=== PATIENT | male | born 1945 | race Caucasian/White ===

== ENCOUNTER → 2021-02-19 14:38 | Outpatient (CLI) | payer OTHER, SELFPAY ==
--- NOTE | 2021-02-19 | DI.ECHO.S_ITS ---
[facility] +---------+ : : [address] : [place] : : : : [id number] : : : : Phone: [phone]+ Echocardiogram Report + + :Name: STEPHON TAYLOR Study Date: 02/19/2021 Height: 69 in : [facility] ReadingLocation: Weight: 219 lb : : Gender: Male BSA: 2.1 m2 : :: 1945 Age: 75 yrs BP: 121/63 mmHg: :Reason For Study: ISCHEMIC CARDIOMYOPATHY : :Ordering Physician: SHARIFA, : :MAXWELL Performed By: Reshma Huitron : :Referring: MAXWELL SEALS : + + Interpretation Summary 1) Moderately enlarged left ventricle with moderately reduced systolic function (EF 35-40%). 2) The distal septum, distal anterior wall, and the apical 1/4th of the myocardium are akinetic. 3) The right ventricle grossly appears normal in size with probable normal systolic function. There is a pacemaker lead in the right ventricle. 4) No significant valvular abnormalities. 5) Compared to the Echo done 09/23/2013, no significant change when compared visually. Procedure: A two-dimensional transthoracic echocardiogram with color flow and Doppler was performed. The study quality was technically adequate. Comparison is made with the echocardiogram of 09/23/2013. The patient had occasional PVCs during the exam. The heart rate ranged between 66-79 bpm during the study. Left Ventricle: The left ventricle is moderately dilated. The ejection fraction is estimated to be 35-40%. The distal septum, distal anterior wall, and the apical 1/4th of the myocardium are akinetic. Right Ventricle: There is a pacemaker lead in the right ventricle. The right ventricle grossly appears normal in size with probable normal systolic function. Atria: The left atrium is mildly dilated. Right atrium not well visualized. There is no Doppler evidence for an interatrial shunt. Mitral Valve: There is mild mitral annular calcification. The mitral valve leaflets appear mildly thickened, but open well. There is mild mitral regurgitation. Aortic Valve: The aortic valve is trileaflet. The aortic valve opens well. The aortic valve is slightly calcified. There is no aortic valve stenosis. There is mild aortic regurgitation. Tricuspid Valve: The tricuspid valve is normal in structure and function. There is mild tricuspid regurgitation. The right ventricular systolic pressure is estimated to be at least 36 mmHg based on an estimated right atrial pressure of 8 mm Hg. Pulmonic Valve: The pulmonic valve is not well seen, but is grossly normal. There is mild pulmonic regurgitation. Great Vessels: The aortic root is normal size. The ascending aorta is mildly enlarged. The IVC is of normal diameter and collapses less than 50% with a sniff. This suggests a right atrial pressure of 8 mm Hg. Pericardium/ Pleura There is no pericardial effusion. There is no pleural effusion. MMode/2D Measurements & Calculations LVIDd: 6.6 cm LVOT diam: 2.0 cm LVIDs: 5.0 cm Ao root diam: 3.3 cm FS: 24.3 % asc Aorta Diam: 3.5 cm IVSd: 0.95 cm Ao Arch Diam (Prox Trans): 4.0 cm LVPWd: 0.98 cm LV gracia. diameter/BSA (cm/m^2): 3.1 LV sys. diameter/BSA (cm/m^2): 2.3 LA A2 area: 23.2 cm2 IVC diam: 1.4 cm LA A4 area: 25.4 cm2 LA length (vol): 6.0 cm LA vol: 83.3 ml LA vol index: 38.8 ml/m2 RVD1 (basal): 3.9 cm TAPSE: 2.0 cm Doppler Measurements & Calculations Ao V2 max: 121.9 cm/sec LVOT Max Gonzales: 75.4 cm/sec Ao V2 mean: 91.6 cm/sec LV V1 max P.3 mmHg Ao max P.9 mmHg LV V1 VTI: 16.7 cm Ao mean P.6 mmHg PARVIZ(I,D): 1.9 cm2 Ao V2 VTI: 28.2 cm PARVIZ(V,D): 2.0 cm2 sev ratio: 0.59 PARVIZ indexed to BSA (cm^2/m^2): 0.91 MV E max gonzales: 63.9 cm/sec TR max gonzales: 265.8 cm/sec MV A max gonzales: 78.3 cm/sec TR max P.3 mmHg MV E/A: 0.82 PA V2 max: 113.7 cm/sec Med Peak E' Gonzales: 4.4 cm/sec PA V2 mean: 78.7 cm/sec E/E' med: 14.6 PA mean P.8 mmHg Lat Peak E' Gonzales: 6.6 cm/sec PA pr(Accel): 22.5 mmHg E/E' lat: 9.6 E/e' average: 12.1 MV dec time: 0.20 sec SV(LVOT): 55.0 ml Reading Physician:10:31 AM
== END ==
PROVIDERS: PCP Internal Medicine Cardiovascular Disease; Referring Provider Internal Medicine Cardiovascular Disease; Visit Provider Internal Medicine Cardiovascular Disease
DX: I08.3 Combined rheumatic disorders of mitral, aortic and tricuspid valves (principal); I77.89 Other specified disorders of arteries and arterioles; I25.5 Ischemic cardiomyopathy
CPT/HCPCS: 93306; Q9957

== ENCOUNTER 2025-06-23 20:05 | Observation (INO) | payer OTHER, SELFPAY ==
[2025-06-23] VITALS (10 sets, daily range): BP systolic 106–126; BP diastolic 60–84; PULSE 50–78; RESP 16–23; TEMP 36.5; O2SAT 94–96; BMI 29.5
--- NOTE | 2025-06-23 20:23 | DI.RAD.S_ITS ---
P angulated ROCEDURE: XR CHEST 1V
[2025-06-23 21:21] LABS: Add Manual Diff / Slide Review NO; Hematocrit 29.9 % (41-53); Hemoglobin 10.2 g/dL (13.5-17.5); Lymphocytes Absolute Auto 900 /uL (1100-4500); Mean Corpuscular HGB Conc 34.1 % (30-36); Mean Corpuscular Hemoglobin 34.1 PG (26-34); Mean Corpuscular Volume 99.9 fL (80-100); Platelet Count 252 X10^3/uL (150-400)
[2025-06-23 21:28] LABS: INR 3.4 (0.9-1.3); Prothrombin Time 37.7 SECONDS (9.4-12.5)
[2025-06-23 21:31] LABS: PTT Partial Thromboplastin Tim 67 SECONDS (25.1-36.5)
[2025-06-23 21:33] LABS: Alanine Aminotransferase 20 IU/L (<50); Albumin 3.9 g/dL (3.5-5.0); Albumin Globulin Ratio 1.4 (1.0-2.8); Alkaline Phosphatase 105 U/L (38-126); Blood Urea Nitrogen 20 mg/dL (9-20); Calcium 9.3 mg/dL (8.4-10.2); Carbon Dioxide 24 mmol/L (22-32); Chloride 105 mmol/L (98-107); Creatine Kinase < 20 U/L (55-170); Estimated Glomerular Filt Rate > 60 mL/min (>60); Globulin 2.8 g/dL (1.7-4.1); Glucose 123 mg/dL (70-99); HEMOLYSIS < 15 (0-50); Lipase 58 U/L (23-300); Magnesium 1.4 mg/dL (1.6-2.3); Potassium 3.9 mmol/L (3.4-5.1); Sodium 134 mmol/L (137-145); Total Protein 6.7 g/dL (6.3-8.2)
[2025-06-23 21:45] LABS: NT-proBNP (BNP-Adult 18+) 3900 pg/mL (<450); Troponin I 0.024 ng/mL (0.01-0.034)
--- NOTE | 2025-06-23 22:39 | ED.DIZZY ---
HPI - Dizziness General Chief Complaint: Dizziness Stated Complaint: headache/dizzy/weakness Time Seen by Provider: 06/23/25 20:22 Source: patient Mode of arrival: Wheelchair History of Present Illness HPI Narrative: 79-year-old male with congestive heart failure extensive cardiac history including coronary artery bypass graft and a pacemaker presents with sudden dizziness this morning when he woke up. It got to the point were he had difficulty standing and walking. No other complaints. Related Data Home Medications ?Medication ?Instructions ?Recorded ?Confirmed CALCIUM CARBONATE/VITAMIN D3 1 tab PO BID ##0 11/04/08 (Oyster Shell Calcium-Vit D Tab) MULTIVITAMIN (#MULTIPLE VITAMINS) 1 cap PO Q DAY ##0 10/27/11 Metformin Hydrochloride 500 mg PO BID ##0 10/27/11 (#GLUCOPHAGE) NITROGLYCERIN (#NITROSTAT) 0.4 mg sublingual PRN ##0 10/27/11 Oxycodone/Acetaminophen (Percocet 1 tab PO QIDP ##0 10/27/11 5-325 MG Tablet) PREDNISONE- (#DELTASONE) 20 mg PO Q DAY ##0 10/27/11 WARFARIN SODIUM 4 mg PO QDAY ##0 10/27/11 carvedilol 25 mg tablet (Coreg) 25 mg PO BID ##0 10/27/11 hydrochlorothiazide 12.5 mg capsule 12.5 mg PO Q DAY ##0 10/27/11 lisinopril 10 mg tablet 10 mg PO Q DAY ##0 10/27/11 lorazepam 1 mg tablet (Ativan) 0.5 - 1 mg PO BIDP ##0 10/27/11 rosuvastatin 40 mg tablet (Crestor) 40 mg PO Q DAY ##0 10/27/11 spironolactone 25 mg tablet 25 mg PO QDAY ##0 10/27/11 sulfasalazine 500 mg tablet 500 mg PO BID ##0 10/27/11 Previous Rx's ?Medication ?Instructions ?Recorded meclizine 25 mg tablet 25 mg PO DAILY PRN dizziness #14 06/24/25 tabs Allergies Allergy/AdvReac Type Severity Reaction Status Date / Time AMIODARONE Allergy Severe LUNG Uncoded 12/03/17 12:03 INVOLVEMENT Review of Systems Review of Systems ROS Unobtainable: All systems reviewed & are unremarkable except as noted in HPI and below Patient History Social History Smoking Status: Never smoker Smoking Status: Never smoker Exam Narrative Exam Narrative: General: Patient appears to be in no acute distress, acting appropriately Head: normocephalic, atraumatic, HEENT: Pupils equal round reactive, eyes tracking well, neck supple, no JVD Heart: regular rate and rhythm, no murmurs, rubs, or gallops heard Lungs: clear to auscultation, no adventitious sounds Abdomen: soft , nontender, nondistended, positive bowel sounds Neurological: no focal neurological signs, moving all extremities well, alert and oriented x3, Psych: good judgment ,good insight, mood is normal. Initial Vital Signs Initial Vital Signs: Vital Signs Temperature 97.7 F 06/23/25 20:11 Pulse Rate 50 L 06/23/25 20:11 Respiratory Rate 16 06/23/25 20:11 Blood Pressure 113/66 06/23/25 20:11 Pulse Oximetry 96 06/23/25 20:11 Oxygen Delivery Method Room Air 06/23/25 20:11 Course Orders Ordered: ED Orders 06/23/25 20:22 EKG-12 Lead Stat 06/23/25 20:23 XR chest 1V Stat 06/23/25 21:15 Complete Blood Count AUTO DIFF Stat Comprehensive Metabolic Panel Stat Lipase Stat Magnesium Stat NT-proBNP (BNP-Adult 18+) Stat PTT Partial Thromboplastin Lucien Stat Prothrombin Time INR Stat Troponin & CK Cardiac Panel Stat 06/23/25 23:34 Trop I [Troponin I] Stat 06/24/25 02:52 CT head/brain wo con Stat Discontinued Medications Magnesium Sulfate (Magnesium Sulfate) 2 gm in 50 mls @ 150 mls/hr IV NOW ONE Stop: 06/23/25 22:59 Last Infusion: 06/23/25 23:14 Dose: Infused Documented By: FERCHO Co-signed By: JONNIE Admin: 06/23/25 22:50 Dose: 150 mls/hr Documented By: HAL Co-signed By: JONNIE Sodium Chloride (Normal Saline 0.9%) 500 mls @ 1,000 mls/hr IV BOLUS ONE Stop: 06/24/25 02:22 Last Infusion: 06/24/25 02:38 Dose: Infused Documented By: Admin: 06/24/25 02:00 Dose: 1,000 mls/hr Documented By: FERCHO Meclizine HCl (Meclizine Hcl 12.5 Mg Tablet) 25 mg PO NOW ONE Stop: 06/24/25 00:27 Last Admin: 06/24/25 00:43 Dose: 25 mg Documented By: FERCHO Reevaluation(s) Reevaluation #1: Upon re-evaluation, even after fluid challenge patient's blood pressure still dropped with change in position from supine to standing. Patient's dizziness continued to persist. It was decided to attempt to admit the patient for observation. Consultations Consultation #1: consulted Dr. Goncalves who was animal taxonomist for Dr. Seals his inside plant supervisor at [facility] who recommended giving a 500cc ns bolus Consultation #2: Dr. Lopez consulted and graciously admitted the patient under observation. Time: 04:37 Vital Signs Vital signs: Vital Signs - 8 hr 06/23/25 20:38 06/23/25 21:00 06/23/25 21:00 Pulse Rate 70 75 Respiratory Rate 17 18 Blood Pressure 126/84 Pulse Oximetry 96 95 Oxygen Delivery Method 06/23/25 21:30 06/23/25 21:31 06/23/25 21:31 Pulse Rate 75 73 Respiratory Rate 20 16 Blood Pressure 116/64 Pulse Oximetry 95 95 Oxygen Delivery Method 06/23/25 22:00 06/23/25 22:01 06/23/25 22:01 Pulse Rate 76 78 Respiratory Rate 23 20 Blood Pressure 113/69 Pulse Oximetry 95 95 Oxygen Delivery Method 06/23/25 22:30 06/23/25 22:30 06/23/25 23:00 Pulse Rate 67 63 Respiratory Rate 17 18 Blood Pressure 125/72 Pulse Oximetry 96 94 Oxygen Delivery Method Room Air 06/23/25 23:00 06/23/25 23:30 06/23/25 23:30 Pulse Rate 63 Respiratory Rate 18 Blood Pressure 107/60 106/63 Pulse Oximetry 96 Oxygen Delivery Method Room Air 06/24/25 00:00 06/24/25 00:00 06/24/25 00:30 Pulse Rate 62 75 Respiratory Rate 15 17 Blood Pressure 112/68 Pulse Oximetry 96 95 Oxygen Delivery Method Room Air Room Air 06/24/25 00:30 06/24/25 01:00 06/24/25 01:01 Pulse Rate 137 H 105 H Respiratory Rate 30 H 17 Blood Pressure 120/64 Pulse Oximetry 96 96 Oxygen Delivery Method Room Air Room Air 06/24/25 01:01 06/24/25 01:30 06/24/25 01:31 Pulse Rate 87 94 H Respiratory Rate 16 13 Blood Pressure 100/52 L Pulse Oximetry 96 96 Oxygen Delivery Method Room Air Room Air 06/24/25 01:35 06/24/25 01:35 06/24/25 02:00 Pulse Rate 93 H 80 Respiratory Rate 14 16 Blood Pressure 94/52 L Pulse Oximetry 95 96 Oxygen Delivery Method Room Air Room Air 06/24/25 02:01 06/24/25 02:01 06/24/25 02:02 Pulse Rate 80 85 Respiratory Rate 14 21 Blood Pressure 83/52 L Pulse Oximetry 95 95 Oxygen Delivery Method Room Air 06/24/25 02:12 06/24/25 02:12 06/24/25 02:15 Pulse Rate 74 84 Respiratory Rate 19 21 Blood Pressure 76/51 L Pulse Oximetry 95 96 Oxygen Delivery Method Room Air 06/24/25 02:15 06/24/25 02:30 06/24/25 02:30 Pulse Rate 77 Respiratory Rate 13 Blood Pressure 91/54 L 110/57 L Pulse Oximetry 97 Oxygen Delivery Method 06/24/25 03:08 06/24/25 03:09 06/24/25 03:09 Pulse Rate 67 76 Respiratory Rate 17 18 Blood Pressure 109/68 Pulse Oximetry 87 L 94 Oxygen Delivery Method 06/24/25 03:30 06/24/25 03:30 06/24/25 04:00 Pulse Rate 76 85 Respiratory Rate 17 26 H Blood Pressure 102/64 Pulse Oximetry 96 92 Oxygen Delivery Method 06/24/25 04:00 Pulse Rate Respiratory Rate Blood Pressure 116/61 Pulse Oximetry Oxygen Delivery Method MDM - Dizziness Lab Data 06/23/25 21:15 06/23/25 21:15 Labs: Lab Results 06/23/25 06/23/25 Range/Units 21:15 23:34 WBC 6.7 (4.5-11.0) X10^3/uL RBC 2.99 L (4.5-5.9) X10^6/uL Hgb 10.2 L (13.5-17.5) g/dL Hct 29.9 L (41-53) % MCV 99.9 (80-100) fL MCH 34.1 H (26-34) PG MCHC 34.1 (30-36) % RDW 14.9 H (11.6-14.8) % Plt Count 252 (150-400) X10^3/uL Neut % (Auto) 79.4 H (50-75) % Lymph % (Auto) 12.9 L (25-40) % Calvert % (Auto) 7.1 (3-14) % Eos % (Auto) 0.0 L (2-4) % Baso % (Auto) 0.6 (0-2) % Neut # (Auto) 5400 (6579-0717) /uL Lymph # (Auto) 900 L (0471-8662) /uL Calvert # (Auto) 500 (0-900) /uL Eos # (Auto) 0 (0-450) /uL Baso # (Auto) 0 (0-100) /uL PT 37.7 H (9.4-12.5) SECONDS INR 3.4 H (0.9-1.3) APTT 67 H (25.1-36.5) SECONDS Sodium 134 L (137-145) mmol/L Potassium 3.9 (3.4-5.1) mmol/L Chloride 105 (98-107) mmol/L Carbon Dioxide 24 (22-32) mmol/L BUN 20 (9-20) mg/dL Creatinine 1.08 (0.66-1.25) mg/dL Estimated GFR > 60 (>60) mL/min BUN/Creatinine Ratio 18.5 (6-22) Glucose 123 H (70-99) mg/dL Calcium 9.3 (8.4-10.2) mg/dL Magnesium 1.4 L (1.6-2.3) mg/dL Total Bilirubin 0.9 (0.2-1.3) mg/dL AST 25 (17-59) IU/L ALT 20 (<50) IU/L Alkaline Phosphatase 105 (38-126) U/L Total Creatine Kinase < 20 L (55-170) U/L Troponin I 0.024 0.022 (0.01-0.034) ng/mL NT-Pro-B Natriuret Pep 3900 H (<450) pg/mL Total Protein 6.7 (6.3-8.2) g/dL Albumin 3.9 (3.5-5.0) g/dL Globulin 2.8 (1.7-4.1) g/dL Albumin/Globulin Ratio 1.4 (1.0-2.8) Lipase 58 (23-300) U/L Imaging Data CT scan - head: Radiologist's Impression: No acute intracranial abnormality Chest x-ray: Radiologist's Impression: No acute cardiopulmonary abnormality seen ECG Data Interpretation: EKG shows a ventricular paced rhythm at 69 beats per minute MDM Narrative Medical decision making narrative: 79-year-old male with a history of congestive heart failure, coronary artery bypass graft, pacemaker presents with sudden dizziness this a.m.. Most likely deal of orthostatic hypotension as patient blood pressure does decrease with change from supine to standing position. Patient was attempted with the fluid bolus challenge of 500 cc normal saline which helped some but did not completely reverse his symptoms. He continues to stay dizzy and thus it was decided to admit the patient under observation. Discharge Plan Departure Patient Disposition: Admitted as Observation Clinical Impression: Orthostatic hypotension Admit Date/Time: 06/24/25 04:37
[2025-06-23] MEDS: MAGNESIUM SULFATE 2 GM/50 ML PIGGYBACK IV (22:50)
--- NOTE | 2025-06-23 23:18 | PC.NURSE ---
Pt lying in ED stretcher speaking with daughter and son when RN enters exam room. Pt and family engage appropriately at this time. Continued plan of care discussed. No requests or concerns at this time. Pt remains connected to cardiac, reps, blood pressure, and poulse ox monitors with alarms on and audible. VS stable at this time. Call light within reach.
[2025-06-24] VITALS (24 sets, daily range): BP systolic 76–124; BP diastolic 51–68; PULSE 62–137; RESP 13–30; TEMP 35.8–36.4; O2SAT 87–98; BMI 29.5
[2025-06-24 00:12] LABS: Troponin I 0.022 ng/mL (0.01-0.034)
[2025-06-24] MEDS: MECLIZINE HCL 12.5 MG TABLET 25 MG PO (00:43)
--- NOTE | 2025-06-24 00:55 | PC.NURSE ---
Pt noted to have voided and soiled clothing and ED stretcher. Pt wiped down and assisted in changing into disposable hospital scrubs. Placed back in ED stretcher and wrapped in warm blankets. Reconnected to cardiac, resp, blood pressure, and pulse ox monitors with alarms on and audible. Manfred light within reach. Family remains at bedside. Pt request to sit in chair because it is les discomfort on neuropathy of lower extremities. Pt placed in chair per request close to vs machine with family sitting close by. Ok'd for food and fluids at th is time by Dr. Thorne. Soup provided as requested.
--- NOTE | 2025-06-24 01:47 | PC.NURSE ---
Pt states he feels no different or better after Meclizine dose. Dr. Thorne aware. Pt remains in chair for comfort. Daughter remains sitting in front of patient for safety.
[2025-06-24] MEDS: SODIUM CHLORIDE 0.9% 500 ML 1000 ML IV (02:00)
--- NOTE | 2025-06-24 02:07 | PC.NURSE ---
Dr. Thorne aware of current vs. NS bolus ordered and administered. Pt remains in chair for comfort at this time. Daughter continues to sit in front of patient for safety.
--- NOTE | 2025-06-24 02:38 | PC.NURSE ---
Pt states dizziness is unchanged after bolus and getting back into stretcher where blood pressure is better.
--- NOTE | 2025-06-24 02:52 | DI.CT.S_ITS ---
PROCEDURE: CT HEAD/BRAIN WO CON
--- NOTE | 2025-06-24 03:02 | PC.NURSE ---
Pt to imaging via ED stretcher with information technology project manager
--- NOTE | 2025-06-24 03:59 | PC.NURSE ---
Pt moved to chair at this time to monitor blood pressure prior to discharge.
--- NOTE | 2025-06-24 04:24 | PC.NURSE ---
Pt states he is still dizzy but feels better than he did and is comfortable going home at this time.
--- NOTE | 2025-06-24 04:27 | PC.NURSE ---
Pt states he does feel better but not enough to go home at this time. Dr. Thorne made aware and at bedside at th is time.
--- NOTE | 2025-06-24 06:12 | PC.WOUNDPHOT ---
BLE BLE L-knee LUE Back
--- NOTE | 2025-06-24 06:32 | P.HP_ITS ---
History of Present Illness
--- NOTE | 2025-06-24 06:32 | PM.HP.1 ---
History of Present Illness History of Present Illness Chief complaint: headache/dizzy/weakness Narrative: 79 years old male with history of congestive heart failure, coronary artery disease, CABG and pacemaker presented to the ER with sudden onset of dizziness when he woke up. He found very difficult standing and walking. Denies any other symptoms. In the ER he was found to be hypotensive and was started to be admitted for observation. His laboratory shows WBC 6.7, H&H 10.2/29.9, sodium 134, creatinine 1.08, blood sugar 125, troponin 0.0 24, BNP 3900, lipase 58. EKG shows ventricular paced rhythm of 69 bpm. Imaging study including head CT and chest x-ray was unremarkable. [facility] Social History Smoking Status: Never smoker Meds Home Medications and Allergies Home Medications ?Medication ?Instructions ?Recorded ?Confirmed ?Type CALCIUM CARBONATE/VITAMIN D3 1 tab PO BID ##0 11/04/08 History (Oyster Shell Calcium-Vit D Tab) MULTIVITAMIN (#MULTIPLE VITAMINS) 1 cap PO Q DAY ##0 10/27/11 History Metformin Hydrochloride 500 mg PO BID ##0 10/27/11 History (#GLUCOPHAGE) NITROGLYCERIN (#NITROSTAT) 0.4 mg sublingual PRN ##0 10/27/11 History Oxycodone/Acetaminophen (Percocet 1 tab PO QIDP ##0 10/27/11 History 5-325 MG Tablet) PREDNISONE- (#DELTASONE) 20 mg PO Q DAY ##0 10/27/11 History WARFARIN SODIUM 4 mg PO QDAY ##0 10/27/11 History carvedilol 25 mg tablet (Coreg) 25 mg PO BID ##0 10/27/11 History hydrochlorothiazide 12.5 mg capsule 12.5 mg PO Q DAY ##0 10/27/11 History lisinopril 10 mg tablet 10 mg PO Q DAY ##0 10/27/11 History lorazepam 1 mg tablet (Ativan) 0.5 - 1 mg PO BIDP ##0 10/27/11 History rosuvastatin 40 mg tablet (Crestor) 40 mg PO Q DAY ##0 10/27/11 History spironolactone 25 mg tablet 25 mg PO QDAY ##0 10/27/11 History sulfasalazine 500 mg tablet 500 mg PO BID ##0 03/04/12 History meclizine 25 mg tablet 25 mg PO DAILY PRN dizziness #14 06/24/25 Rx tabs Allergies Allergy/AdvReac Type Severity Reaction Status Date / Time AMIODARONE Allergy Severe LUNG Uncoded 12/03/17 12:03 INVOLVEMENT Review of Systems Review of Systems ROS: Yes All systems reviewed with the patient and are negative except as otherwise documented Constitutional Constitutional: Reports as per HPI and Reports system reviewed and no additional complaints, except as documented Eyes Eyes: Reports as per HPI and Reports system reviewed and no additional complaints, except as documented ENT Ears, Nose, Mouth, and Throat: Yes as per HPI and Yes system reviewed and no additional complaints, except as documented Cardiovascular Cardiovascular: Reports system reviewed and no additional complaints, except as documented Respiratory Respiratory: Reports system reviewed and no additional complaints, except as documented Gastrointestinal Gastrointestinal: Reports system reviewed and no additional complaints, except as documented Genitourinary Genitourinary: Reports system reviewed and no additional complaints, except as documented Musculoskeletal Musculoskeletal: Reports system reviewed and no additional complaints, except as documented, Reports abnormal gait and Reports numbness Neurologic Neurologic: Reports system reviewed and no additional complaints, except as documented, Reports abnormal gait, Reports confusion and Reports numbness Psychiatric Psychiatric: Reports system reviewed and no additional complaints, except as documented and Reports confusion Exam Vital Signs (past 8 hours): - 06/23/25 23:00 06/23/25 23:00 06/23/25 23:30 Pulse Rate 63 63 Respiratory Rate 18 18 Blood Pressure 107/60 Pulse Oximetry 94 96 Oxygen Delivery Method Room Air Room Air 06/23/25 23:30 06/24/25 00:00 06/24/25 00:00 Pulse Rate 62 Respiratory Rate 15 Blood Pressure 106/63 112/68 Pulse Oximetry 96 Oxygen Delivery Method Room Air 06/24/25 00:30 06/24/25 00:30 06/24/25 01:00 Pulse Rate 75 137 H Respiratory Rate 17 30 H Blood Pressure 120/64 Pulse Oximetry 95 96 Oxygen Delivery Method Room Air Room Air 06/24/25 01:01 06/24/25 01:01 06/24/25 01:30 Pulse Rate 105 H 87 Respiratory Rate 17 16 Blood Pressure 100/52 L Pulse Oximetry 96 96 Oxygen Delivery Method Room Air Room Air 06/24/25 01:31 06/24/25 01:35 06/24/25 01:35 Pulse Rate 94 H 93 H Respiratory Rate 13 14 Blood Pressure 94/52 L Pulse Oximetry 96 95 Oxygen Delivery Method Room Air Room Air 06/24/25 02:00 06/24/25 02:01 06/24/25 02:01 Pulse Rate 80 80 Respiratory Rate 16 14 Blood Pressure 83/52 L Pulse Oximetry 96 95 Oxygen Delivery Method Room Air Room Air 06/24/25 02:02 06/24/25 02:12 06/24/25 02:12 Pulse Rate 85 74 Respiratory Rate 21 19 Blood Pressure 76/51 L Pulse Oximetry 95 95 Oxygen Delivery Method Room Air 06/24/25 02:15 06/24/25 02:15 06/24/25 02:30 Pulse Rate 84 77 Respiratory Rate 21 13 Blood Pressure 91/54 L Pulse Oximetry 96 97 Oxygen Delivery Method 06/24/25 02:30 06/24/25 03:08 06/24/25 03:09 Pulse Rate 67 76 Respiratory Rate 17 18 Blood Pressure 110/57 L Pulse Oximetry 87 L 94 Oxygen Delivery Method 06/24/25 03:09 06/24/25 03:30 06/24/25 03:30 Pulse Rate 76 Respiratory Rate 17 Blood Pressure 109/68 102/64 Pulse Oximetry 96 Oxygen Delivery Method 06/24/25 04:00 06/24/25 04:00 06/24/25 04:24 Pulse Rate 85 Respiratory Rate 26 H Blood Pressure 116/61 102/56 L Pulse Oximetry 92 Oxygen Delivery Method 06/24/25 04:24 06/24/25 04:30 06/24/25 04:30 Pulse Rate 82 82 Respiratory Rate 20 17 Blood Pressure 100/57 L Pulse Oximetry 97 98 Oxygen Delivery Method 06/24/25 05:00 06/24/25 05:01 06/24/25 05:01 Pulse Rate 82 83 Respiratory Rate 17 21 Blood Pressure 103/53 L Pulse Oximetry 98 98 Oxygen Delivery Method Room Air Oxygen Delivery Method Room Air Const General: cooperative, comfortable and well developed Orientation: alert and oriented x3 HENMT Head: normal to inspection, normocephalic and atraumatic Face and sinus: normal facial exam Mouth: oral mucosae normal and moist mucous membranes Throat: posterior oropharynx normal Eyes General: appearance normal, both eyes and all related structures Pupils: PERRL EOM: EOM intact bilaterally Neck Neck: normal visual inspection and full ROM Chest Chest: normal inspection of the chest Resp Effort & Inspection: normal respiratory effort and able to speak in complete sentences Auscultation: clear to auscultation bilaterally Cardio Palpation: normal PMI Rate: regular rate Rhythm: regular rhythm Heart Sounds: S1 normal and S2 normal GI Inspection: normal to inspection Palpation: soft and no hepatosplenomegaly Auscultation: normal bowel sounds Skin General: no rashes or lesions noted Lesions: no lesions Rashes: no rashes Trauma: no lacerations or abrasions Neuro General: patient alert, patient awake, patient oriented x3 and no focal motor deficits Cranial Nerves: CN's II-XI intact bilaterally Cognition: normal cognition Speech: speech normal Gait: normal gait Motor: muscle tone normal throughout Sensory Exam: no sensory deficits noted Extrem General: full ROM and no calf tenderness Psych Appearance: grossly normal Mental Status: mental status grossly normal Speech and Movement: speech and movement normal Objective Labs 06/23/25 21:15 06/23/25 21:15 Labs: Laboratory Results - last 24 hr 06/23/25 06/23/25 21:15 23:34 WBC 6.7 RBC 2.99 L Hgb 10.2 L Hct 29.9 L MCV 99.9 MCH 34.1 H MCHC 34.1 RDW 14.9 H Plt Count 252 Neut % (Auto) 79.4 H Lymph % (Auto) 12.9 L Stephenson % (Auto) 7.1 Eos % (Auto) 0.0 L Baso % (Auto) 0.6 Neut # (Auto) 5400 Lymph # (Auto) 900 L Stephenson # (Auto) 500 Eos # (Auto) 0 Baso # (Auto) 0 PT 37.7 H INR 3.4 H APTT 67 H Sodium 134 L Potassium 3.9 Chloride 105 Carbon Dioxide 24 BUN 20 Creatinine 1.08 Estimated GFR > 60 BUN/Creatinine Ratio 18.5 Glucose 123 H Calcium 9.3 Magnesium 1.4 L Total Bilirubin 0.9 AST 25 ALT 20 Alkaline Phosphatase 105 Total Creatine Kinase < 20 L Troponin I 0.024 0.022 NT-Pro-B Natriuret Pep 3900 H Total Protein 6.7 Albumin 3.9 Globulin 2.8 Albumin/Globulin Ratio 1.4 Lipase 58 Assessment & Plan Assessment & Plan narrative: Orthostatic hypotension, most likely medication related. - Will hold diuretics, carvedilol and lisinopril for now - Judiciously give some fluids. Diabetes mellitus, type II without long-term current use of insulin, uncontrolled with hyperglycemia, -check HbA1c. -Continue to monitor blood sugar. - Hold metformin during the hospital stay -Continue diabetic diet with sliding scale insulins with NovoLog sliding scale. -hypoglycemia protocol as needed Chronic diastolic congestive heart failure and Ischemic heart disease. -Continue to monitor closely.?? - Hold home meds for now due to orthostatic hypotension.. -Strict I&O. -Daily weights -Nitroglycerin as needed Dizziness. Restart meclizine as needed Hyperlipidemia. Restart Crestor. Paroxysmal atrial fibrillation, rate controlled on warfarin. INR 3.4. - Pharmacy consult for warfarin dose adjustment - INR daily Hypomagnesia. Replace and monitor. Time-Based Coding :: [TOTAL MINUTES] spent with patient and on the chart (including review of chart, obtaining history, exam, reviewing outside data, placing orders, documenting exam and treatment plan, and counseling patient) on [DATE]. Quality VTE Deep Vein Thrombosis/Pulmonary Embolism Present on Admission: No MIPS - Admit I confirm the patient?s Advance Care Plan is present, Code status is documented, Surrogate decision maker is in patient?s record [If Yes, STOP here]: Yes MIPS - Meds 'Current medications' to include all prescriptions, [id number] products, herbals, cannabis/cannabidiol products, and vitamin/mineral/dietary (nutritional) supplements. I have utilized all available resources to obtain, update, or review the patient?s current medications. [If Yes, STOP here]: Yes
[2025-06-24 06:48] LABS: Alanine Aminotransferase 19 IU/L (<50); Albumin 3.8 g/dL (3.5-5.0); Albumin Globulin Ratio 1.4 (1.0-2.8); Alkaline Phosphatase 99 U/L (38-126); Blood Urea Nitrogen 20 mg/dL (9-20); Calcium 8.9 mg/dL (8.4-10.2); Carbon Dioxide 23 mmol/L (22-32); Chloride 105 mmol/L (98-107); Estimated Glomerular Filt Rate > 60 mL/min (>60); Globulin 2.8 g/dL (1.7-4.1); Glucose 98 mg/dL (70-99); HEMOLYSIS < 15 (0-50); Magnesium 1.9 mg/dL (1.6-2.3); Potassium 3.9 mmol/L (3.4-5.1); Sodium 135 mmol/L (137-145); Total Protein 6.6 g/dL (6.3-8.2)
[2025-06-24 06:49] LABS: Hemoglobin A1C% w Est Avg Glu 4.2 % (4.0-6.0)
[2025-06-24 07:34] LABS: Thyroid Stimulating Hormone 2.22 uIU/mL (0.47-4.68)
--- NOTE | 2025-06-24 10:35 | PT.IIE ---
Physical Therapy Inpatient Evaluation/Re-Eval M1 PT/OT-IP Prior Functional Status Start: 06/24/25 13:17 Freq: NEEDED Status: Active Protocol: Document 06/24/25 12:51 [facility] (Rec: 06/24/25 13:30 [facility] Desktop) Medical Review Prior Functional Status Medical History Yes Reviewed Communication I Mobility and Gait Furniture cruise inside mobile home and SPC 1000ft outside. Activities of Daily I with all ADL,IADL and driving needs. Pt states mainly Living and IADL's not just microwaves and having more difficulty to do laundry. Social History Household Members family,none Living Arrangements Mobile home Number of Floors ( One Floor Floors) Number of Stairs To 4 steps with bilateral wide rails. Enter/Railing? Home Environment Standard Height Toilet,Tub/Shower Home Equipment Straight Cane,Hand Held Shower Additional Social Pt has an adjustable bed. History Comment M2 PT-IP Current Condition Start: 06/24/25 13:17 Freq: NEEDED Status: Active Protocol: Document 06/24/25 10:35 AB (Rec: 06/24/25 13:30 AB [id number]) Physical Therapy Current Condition Current Condition Evaluation Date 06/24/25 Treatment Diagnosis hypotension; difficulty in walking Onset Date 06/24/25 M3 PT-IP Subjective Start: 06/24/25 13:17 Freq: NEEDED Status: Active Protocol: Document 06/24/25 10:35 AB (Rec: 06/24/25 13:30 AB [id number]) Subjective Physical Therapy Visit Type Type Initial Evaluation Visit Start Time 10:35 Visit Stop Time 11:10 Number of WATER CARTER Visits 0 Physical Therapy Visit Comments Patient Comments agreeable to do PT Therapy Pain Assessment Pain When Pain Assessed At Rest Location Lower Ribs Intensity 2 Scale Used Numeric (0 - 10) Pain Management Distraction,Modification of Treatment,Re-positioning Techniques M4 PT-IP Mobility and Gait Start: 06/24/25 13:17 Freq: NEEDED Status: Active Protocol: Document 06/24/25 10:35 AB (Rec: 06/24/25 13:30 AB [id number]) PT-Bed Mobility Assessment Supine to Sit Supine to Sit Standby Assistance PT-Transfer Assessment Sit to and From Stand Sit to and from Standby Assistance,1 Person Assistance,Use of Upper Stand Extremities Equipment Transfer Assistive Gait Belt,Front Wheeled Walker Device Orthotic/Prosthetic No Devices or Brace: Transfers Transfer Destination Chair Transfer Technique Stand Step Pivot Transfer Ability Level of Assist Minimal Assistance,1 Person Assistance,Use of Upper Extremities Comments Mobility Comments pt in bed and agreeable to do PT. obtained PLOF and home set up. BP monitored. BP in supine: 93/51 O2 sat 98% and GA: 69 completed supine to sit SBA. BP in sittin/55. pt sat on EOB for 2 more minutes. BP: 101/53. completed sit to stand SBA. BP in standin/52. pt sat back on EOB: 94/46. pt rested agreed to walk. sit to stand SBA and ambulated in room ~ 15 ft min A and cues using FWW. unsteady gait with HOB towards end of ambulation. c/o dizziness. BP checked: 100/65. pt refused to sit on the chair and stated that he has not slept for days and wants to go lay back in bed. sit to supine SBA. positioned pt in bed. call light and table placed within reach. informed nurse regarding low BP. Gait Assessment Gait Gait Assistance Minimum Assistance Required: Distance (Feet) 15 Able to Maintain Yes Weight Bearing Status During Gait Assistive Devices Assistive Device Gait Belt,Front Wheeled Walker Orthotic/Prosthetic No Devices or Brace: Gait Deviations General Gait Pattern Antalgic,Ataxic,Decreased Stride Length,Decreased Feet Clearance,Step-to Gait Factors Limiting Gait Function Factors Limiting Decreased Activity Tolerance,Decreased Strength, Gait Function Difficulty Following Directions,Incoordination,Limited Range of Motion,Pain,Poor Balance,Poor Safety Awareness PT-Balance Assessment Sitting Balance and Reactions Static Sitting Normal Balance Ability Dynamic Sitting Good Balance Ability Standing Balance and Reactions Static Standing Fair Balance Ability Dynamic Standing Fair Balance Ability Device Used FWW M5 PT-IP Objective Assessments Start: 06/24/25 13:17 Freq: NEEDED Status: Active Protocol: Document 06/24/25 10:35 AB (Rec: 06/24/25 13:30 AB [id number]) Orientation Orientation/Cognition Level of Alertness Alert Orientation Name,Place,Situation Language Function Hard of Hearing Ability Safety Awareness Decreased Safety Awareness Memory Description No Deficits Noted Gross Range of Motion Lower Extremity ROM Assessment Within Functional Limits Strength Lower Extremity Strength Assessment Within Functional Limits Muscle Tone Muscle Tone WNL Yes M6 PT-IP Treatment Start: 06/24/25 13:17 Freq: NEEDED Status: Active Protocol: Document 06/24/25 10:35 AB (Rec: 06/24/25 13:30 AB [id number]) Physical Therapy Treatment Education Education Provided Safety M7 PT-IP Assessment and Plan Start: 06/24/25 13:17 Freq: NEEDED Status: Active Protocol: Document 06/24/25 10:35 AB (Rec: 06/24/25 13:30 AB [id number]) PT Summary Assessment and Plan Potential Rehabilitation Fair Potential Status of Condition Evolving at Evaluation Summary Impairments Pain,ROM,Strength,Balance,Coordination,Sensation,Tone, Cognition,Bed Mobility,Transfers,Gait,Activity Tolerance Assessment Summary pt is a 79 y/o M who is admitted for dizziness; hypotension. pt requiring min A for ambulation using FWW ~ 15 ft with (+) LOB. pt unable to tolerate much activities with c/o dizziness and continues to have low BP. will continue to assess progress but at this time will need SNF rehab. Goals Bed Mobility Goal Independent Transfer Goal Independent,Front Wheeled Walker Gait Goal Independent,Front Wheel Walker Gait Distance 150 Other Goals improve transfers and ambulation using SPC ~ 200 ft mod I up/down 4 steps 1 rail mod I Days to Meet Goals 10 Frequency of Treatment Frequency Of Once a Day Treatment Treatment Plan Physical Therapy Bed Mobility Training,Transfer Training,Gait Training, Treatment Plan Therapeutic Exercise,Balance Retraining,Discharge Planning,Hot or Cold Pack,Neuromuscular Re-ed, Coordination Retraining Precautions Other Precautions BP Recommendations To Nursing Amount of Assist 1 Person Assist Needed Discharge Recommendations PT Discharge SNF Rehab Recommendations Equipment Needed for FWW if pt goes home and not safe with SPC Home Before Discharge Transportation Needs Private Vehicle,Wheelchair/Cabulance at Discharge - PT assist 1
--- NOTE | 2025-06-24 10:55 | OT.IP.EVAL ---
Occupational Therapy Inpatient Evaluation/Re-Eval M1 PT/OT-IP Prior Functional Status Start: 06/24/25 12:51 Freq: NEEDED Status: Active Protocol: Document 06/24/25 12:51 [facility] (Rec: 06/24/25 13:06 [facility] Desktop) Medical Review Prior Functional Status Medical History Yes Reviewed Communication I Mobility and Gait Furniture cruise inside mobile home and SPC 1000ft outside. Activities of Daily I with all ADL,IADL and driving needs. Pt states mainly Living and IADL's not just microwaves and having more difficulty to do laundry. Social History Household Members family Living Arrangements House Number of Floors ( One Floor Floors) Number of Stairs To 4 steps with bilateral wide rails. Enter/Railing? Home Environment Standard Height Toilet,Tub/Shower Home Equipment Straight Cane,Hand Held Shower Additional Social Pt has an adjustable bed. History Comment M2 OT-IP Current Condition Start: 06/24/25 12:51 Freq: Status: Active Protocol: Document 06/24/25 12:51 [facility] (Rec: 06/24/25 13:06 [facility] Desktop) Occupational Therapy Current Condition Current Condition Evaluation Date 06/24/25 Treatment Diagnosis Orthostatic Hypotension Diagnosis Onset Date 06/24/25 M3 OT- IP Subjective and Pain Start: 06/24/25 12:51 Freq: Status: Active Protocol: Document 06/24/25 12:51 [facility] (Rec: 06/24/25 13:06 [facility] Desktop) OT- Subjective Occupational Therapy Visit Type Type Initial Evaluation Visit Start Time 10:55 Visit Stop Time 11:33 Occupational Therapy Visit Comments Patient Comments Pt agreed to get up, PT present for beginning of OT eval. Patient/Caregiver To go home. Goals OT Pain Assessment Pain When Pain Assessed During Mobility Pain Present Pain Present Pain Reported Location Right Shoulder Pain Behaviors Guarding M4 OT- IP ADL's Start: 06/24/25 12:51 Freq: Status: Active Protocol: Document 06/24/25 12:51 [facility] (Rec: 06/24/25 13:06 [facility] Desktop) OT [id number] General Evaluation Self-Feeding Ability Independent OT ADL-Grooming Comments OT Grooming Comments Not performed. OT ADL-Oral Care Comments Oral Care Comments Not performed. OT ADL-Dressing Comments OT Dressing Comments Not performed. OT ADL-Toileting Comments OT Toileting Not observed. Comments OT ADL-Bathing Comments OT Bathing Comments Pt will benefit from shower chair or tub bench and grab bar. M5 OT- IP IADL's Start: 06/24/25 12:51 Freq: Status: Active Protocol: Document 06/24/25 12:51 [facility] (Rec: 06/24/25 13:06 [facility] Desktop) OT-Instrumental Activities of Daily Living Home Safety Awareness Awareness of Need Good Awareness for Assistance at Home Ability to Problem Able to Problem Solve Solve Emergency Situations Medication Management Medication No Deficits Identified Management Money Management Money Management No Deficits Identified Meal Preparation Meal Preparation Pt will benefit from supervision and have been thinking Comments of ordering meals instead of frozen TV dinners that he microwaves. Supervisor Incising Supervisor Incising Pt states will start to ask his kids to come and assist Comments for IADL needs. Driving Driving Comments Pt states will not drive at this time especially when he is feeling light headed. M6 OT- IP Functional Cognition Start: 06/24/25 12:51 Freq: Status: Active Protocol: Document 06/24/25 12:51 [facility] (Rec: 06/24/25 13:06 [facility] Desktop) Cognitive Factors Limiting Selfcare Function Cognitive Ability Level of Alertness Alert Patient Orientation Name,Age,Birthday,Month,Date,Year,Day of Week,Place, Situation Attention Span Capable of Focused Attention,Capable of Sustained Ability Attention Ability to Follow Able to Follow One Step Commands with Increased Time Commands Memory Description Short Term Impaired Safety Awareness No Deficits Noted Problem Solving No deficits Noted Ability Cognitive Tests SLUMS Pt scored 24/30 on SLUMS which implies mild neurocognitive disorder. Pt states has not slept well. Pt able to recall 3/5 objects after time passed, not able to draw the hour hands correctly after time given, and able to answer 3/4 questions right after time passed. Cognitive Comments Cognitive Assessment Pt admits that he mainly drinks soda and juice and not Comments water at home. Pt will benefit from increased assist from his adult kids for especially IADL needs. OT- Vision and Hearing OT- Hearing Assessment OT- Hearing Hearing Impaired Assessment OT- Vision Assessment Visual Acuity Glasses All The Time Visual Attentiveness WFL Occular Pursuits WFL Vision Assessment Pt states unable to hear out of his left ear and having Comments more trouble with his right hear. Pt will benefit from getting his hearing checked. M7 OT- IP Mobility and Balance Start: 06/24/25 12:51 Freq: Status: Active Protocol: Document 06/24/25 12:51 [facility] (Rec: 06/24/25 13:06 [facility] Desktop) OT-Transfer Assessment Sit to and From Stand Sit to and from Standby Assistance Stand Transfers Transfer Ability Standby Assistance Technique Transfer Destination Bed,Chair Transfer Technique Stand Step Pivot Devices Transfer Assistive Gait Belt,Front Wheeled Walker Devices Comments Mobility Comments SBA with FWW. Please see PT eval for BP readings. Pt limited in mobility due to decrease in BP. OT- Balance Assessment Sitting Balance and Reactions Static Sitting Normal Balance Ability Dynamic Sitting Normal Balance Ability Standing Balance and Reactions Static Standing Good Balance Ability Dynamic Standing Good Balance Ability M8 OT- IP Objective Assessments Start: 06/24/25 12:51 Freq: Status: Active Protocol: Document 06/24/25 12:51 [facility] (Rec: 06/24/25 13:06 [facility] Desktop) OT Gross Range of Motion Upper Extremity Range of Motion Assessment Bilaterally Impaired ROM Impairments grossly WFL OT Strength Upper Extremity Strength Assessment Right Impaired Comments Strength Comments Pt has right shoulder pain- NT, otherwise BUE WFL M9 OT- IP Assessment and Plan Start: 06/24/25 12:51 Freq: Status: Active Protocol: Document 06/24/25 12:51 [facility] (Rec: 06/24/25 13:06 [facility] Desktop) OT Summary Assessment and Plan Potential Rehabilitation Excellent Potential Analytic Complexity Low at Evaluation Summary OT Impairments Balance,Functional Mobility,Dressing,Toileting,Bathing, Toilet Transfers,Shower Transfers,Activity Tolerance Progress Towards Slow Progress due to Medical Issues Goals Assessment Summary Pt MOD complexity and main barriers are orthostatic hypotension, scored 24/30 on the SLUMS having some difficulty with his STM, and is SBA with FWW in the room. When medically stable pt will benefit from increased assist from his adult kids for IADL needs and get a shower chair/tub bench for showering needs for safety. Goals Self-Feeding Goal Independent Grooming Goal Independent Dressing Goal Independent Toileting Goal Independent Bathing Goal Independent Toilet Transfer Goal Independent Shower Transfer Goal Independent Days to Meet Goals 5 Frequency of Treatment Other frequency 5x/week Treatment Plan OT Treatment Plan ADL Training,Functional Mobility,Patient/Family Education,Discharge Planning Discharge Recommendations OT Discharge Home with Assistance Recommendations Home Equipment Needs shower chair versus tub bench Transportation Needs Private Vehicle at Discharge
--- NOTE | 2025-06-24 11:33 | OT.IP.EVAL ---
Occupational Therapy Inpatient Evaluation/Re-Eval M1 PT/OT-IP Prior Functional Status Start: 06/24/25 13:17 Freq: NEEDED Status: Active Protocol: Document 06/24/25 12:51 [facility] (Rec: 06/24/25 13:30 [facility] Desktop) Medical Review Prior Functional Status Medical History Yes Reviewed Communication I Mobility and Gait Furniture cruise inside mobile home and SPC 1000ft outside. Activities of Daily I with all ADL,IADL and driving needs. Pt states mainly Living and IADL's not just microwaves and having more difficulty to do laundry. Social History Household Members family,none Living Arrangements Mobile home Number of Floors ( One Floor Floors) Number of Stairs To 4 steps with bilateral wide rails. Enter/Railing? Home Environment Standard Height Toilet,Tub/Shower Home Equipment Straight Cane,Hand Held Shower Additional Social Pt has an adjustable bed. History Comment M2 OT-IP Current Condition Start: 06/24/25 12:51 Freq: Status: Active Protocol: Document 06/24/25 12:51 [facility] (Rec: 06/24/25 13:30 [facility] Desktop) Occupational Therapy Current Condition Current Condition Evaluation Date 06/24/25 Treatment Diagnosis Orthostatic Hypotension Diagnosis Onset Date 06/24/25 M3 OT- IP Subjective and Pain Start: 06/24/25 12:51 Freq: Status: Active Protocol: Document 06/24/25 12:51 [facility] (Rec: 06/24/25 13:30 [facility] Desktop) OT- Subjective Occupational Therapy Visit Type Type Initial Evaluation Visit Start Time 10:55 Visit Stop Time 11:33 Occupational Therapy Visit Comments Patient Comments Pt agreed to get up, PT present for beginning of OT eval. Patient/Caregiver To go home. Goals OT Pain Assessment Pain When Pain Assessed During Mobility Pain Present Pain Present Pain Reported Location Right Shoulder Pain Behaviors Guarding M4 OT- IP ADL's Start: 06/24/25 12:51 Freq: Status: Active Protocol: Document 06/24/25 12:51 [facility] (Rec: 06/24/25 13:30 [facility] Desktop) OT [id number] General Evaluation Self-Feeding Ability Independent OT ADL-Grooming Comments OT Grooming Comments Not performed. OT ADL-Oral Care Comments Oral Care Comments Not performed. OT ADL-Dressing Comments OT Dressing Comments Not performed. OT ADL-Toileting Comments OT Toileting Not observed. Comments OT ADL-Bathing Comments OT Bathing Comments Pt will benefit from shower chair or tub bench and grab bar. M5 OT- IP IADL's Start: 06/24/25 12:51 Freq: Status: Active Protocol: Document 06/24/25 12:51 [facility] (Rec: 06/24/25 13:30 [facility] Desktop) OT-Instrumental Activities of Daily Living Home Safety Awareness Awareness of Need Good Awareness for Assistance at Home Ability to Problem Able to Problem Solve Solve Emergency Situations Medication Management Medication No Deficits Identified Management Money Management Money Management No Deficits Identified Meal Preparation Meal Preparation Pt will benefit from supervision and have been thinking Comments of ordering meals instead of frozen TV dinners that he microwaves. Forestry Workers Forestry Workers Pt states will start to ask his kids to come and assist Comments for IADL needs. Driving Driving Comments Pt states will not drive as this time especially when feeling light headed. M6 OT- IP Functional Cognition Start: 06/24/25 12:51 Freq: Status: Active Protocol: Document 06/24/25 12:51 [facility] (Rec: 06/24/25 13:30 [facility] Desktop) Cognitive Factors Limiting Selfcare Function Cognitive Ability Level of Alertness Alert Patient Orientation Name,Age,Birthday,Month,Date,Year,Day of Week,Place, Situation Attention Span Capable of Focused Attention,Capable of Sustained Ability Attention Ability to Follow Able to Follow One Step Commands with Increased Time Commands Memory Description Short Term Impaired Safety Awareness No Deficits Noted Problem Solving No deficits Noted Ability Cognitive Tests SLUMS Pt scored 24/30 on SLUMS which implies mild neurocognitive disorder. Pt states has not slept well. Pt able to recall 3/5 objects after time passed, not able to draw the hour hands correctly after time given, and able to answer 3/4 questions right after time passed. Cognitive Comments Cognitive Assessment Pt admits that he mainly drinks soda and juice and not Comments water at home. Pt will benefit from increased assist from his adult kids for especially IADL needs. OT- Vision and Hearing OT- Hearing Assessment OT- Hearing Hearing Impaired,Use of Hearing Aids Assessment OT- Vision Assessment Visual Acuity Glasses All The Time Visual Attentiveness WFL Occular Pursuits WFL Vision Assessment Pt states unable to hear out of his left ear and having Comments more trouble with his right hear. Pt will benefit from getting his hearing checked. M7 OT- IP Mobility and Balance Start: 06/24/25 12:51 Freq: Status: Active Protocol: Document 06/24/25 12:51 [facility] (Rec: 06/24/25 13:30 [facility] Desktop) OT-Transfer Assessment Sit to and From Stand Sit to and from Standby Assistance Stand Transfers Transfer Ability Standby Assistance Technique Transfer Destination Bed,Chair Transfer Technique Stand Step Pivot Devices Transfer Assistive Gait Belt,Front Wheeled Walker Devices Comments Mobility Comments SBA with FWW. Please see PT eval for BP readings. Pt limited in mobility due to decrease in BP. OT- Balance Assessment Sitting Balance and Reactions Static Sitting Normal Balance Ability Dynamic Sitting Normal Balance Ability Standing Balance and Reactions Static Standing Good Balance Ability Dynamic Standing Good Balance Ability M8 OT- IP Objective Assessments Start: 06/24/25 12:51 Freq: Status: Active Protocol: Document 06/24/25 12:51 [facility] (Rec: 06/24/25 13:30 [facility] Desktop) OT Gross Range of Motion Upper Extremity Range of Motion Assessment Bilaterally Impaired ROM Impairments grossly WFL OT Strength Upper Extremity Strength Assessment Right Impaired Comments Strength Comments Pt has right shoulder pain- NT, otherwise BUE WFL M9 OT- IP Assessment and Plan Start: 06/24/25 12:51 Freq: Status: Active Protocol: Document 06/24/25 12:51 [facility] (Rec: 06/24/25 13:30 [facility] Desktop) OT Summary Assessment and Plan Potential Rehabilitation Excellent Potential Analytic Complexity Low at Evaluation Summary OT Impairments Balance,Functional Mobility,Dressing,Toileting,Bathing, Toilet Transfers,Shower Transfers,Activity Tolerance Progress Towards Slow Progress due to Medical Issues Goals Assessment Summary Pt MOD complexity and main barriers are orthostatic hypotension, scored 24/30 on the SLUMS having some difficulty with his STM, and is SBA with FWW in the room. When medically stable pt will benefit from increased assist from his adult kids for IADL needs and get a shower chair/tub bench for showering needs for safety. Pt will also benefit from getting his hearing check as he states unable to hear out of left ear and having more trouble to hear out of his right ear now. Goals Self-Feeding Goal Independent Grooming Goal Independent Dressing Goal Independent Toileting Goal Independent Bathing Goal Independent Toilet Transfer Goal Independent Shower Transfer Goal Independent Days to Meet Goals 5 Frequency of Treatment Other frequency 5x/week Treatment Plan OT Treatment Plan ADL Training,Functional Mobility,Patient/Family Education,Discharge Planning Discharge Recommendations OT Discharge Home with Assistance Recommendations Home Equipment Needs shower chair versus tub bench Transportation Needs Private Vehicle at Discharge
--- NOTE | 2025-06-24 13:23 | OT.IPNOTE ---
Pt lives alone in mobile home.
[2025-06-24] MEDS: FUROSEMIDE 40 MG/4 ML VIAL 20 MG IV (13:43)
--- NOTE | 2025-06-24 13:49 | P.HP_ITS ---
History of Present Illness
--- NOTE | 2025-06-24 13:49 | PM.HP.1 ---
History of Present Illness History of Present Illness Date Patient Seen: 06/24/25 Chief complaint: headache/dizzy/weakness Narrative: Chief complaint: Dizziness feeling faint secondary to orthostatic hypotension with ischemic cardiomyopathy coronary disease History of present illness: 06/24: (per director of critical care documentation) 79 years old male with history of congestive heart failure, coronary artery disease, CABG and pacemaker presented to the ER with sudden onset of dizziness when he woke up. He found very difficult standing and walking. Denies any other symptoms. In the ER he was found to be hypotensive and was started to be admitted for observation. Findings in the emergency department: His laboratory shows WBC 6.7, H&H 10.2/29.9, sodium 134, creatinine 1.08, blood sugar 125, troponin 0.0 24, BNP 3900, lipase 58. EKG shows ventricular paced rhythm of 69 bpm. Imaging study including head CT and chest x-ray was unremarkable. And PT INR was 3.4 Echocardiogram: Dilated LV. Severely reduced LV systolic function. LVEF is 25 to 30%. LAD wall segments appear akinetic. Normal RV size. RV systolic function appears mildly reduced. Moderately dilated left atrium. Mild mitral and tricuspid regurgitation. Ascending aorta is mildly dilated at 3.9 cm. Hospital course: 06/24: Patient did not sleep last night but no episodes of chest pain shortness for breath palpitations no syncopal episodes spent most of the time in bed Review of systems: No palpitations chest pain No fevers chills rigors No nausea vomiting diarrhea No paresthesia or paresis Physical exam: Elderly male tired but no acute distress HEENT unremarkable Heart rate and rhythm regular Lungs clear Abdomen benign Extremities no edema For objective laboratory imaging and cardiac findings please see the bottom of the note Assessment and plan: Symptomatic orthostasis in a patient with extensive cardiac history low ejection fraction coronary artery disease status post 6 myocardial infarctions with aortocoronary bypass revascularization and history No signs of acute coronary ischemia Suspect this is hypovolemia related to diuretics that are being used to compensate chronic heart failure Hold diuretics gentle hydration per recommendation of Dr. Goncalves on-call for Dr. 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 Management as above Chronic coronary artery disease status post revascularization and multiple infarcts Continue all core measures GDM T as tolerated Chronic type 2 diabetes Exogenous sliding scale insulin if needed for hyperglycemia DVT prophylaxis: Covered with warfarin PT INR 3.4 Code status: Full code blue Disposition: Observation 24-36 hours Time based billin minutes were involved in the evaluation of this patient including [id number] evaluation review of records personal review of objective laboratory and imaging findings as well as EKG [facility] Social History household members: none Smoking Status: Never smoker Meds Home Medications and Allergies Home Medications ?Medication ?Instructions ?Recorded ?Confirmed ?Type carvedilol 25 mg tablet (Coreg) 25 mg PO BID ##0 10/27/11 06/24/25 History hydrochlorothiazide 12.5 mg capsule 12.5 mg PO DAILY ##0 10/27/11 06/24/25 History lisinopril 10 mg tablet 10 mg PO DAILY ##0 10/27/11 06/24/25 History lorazepam 1 mg tablet (Ativan) 0.5 - 1 mg PO BID ##0 10/27/11 06/24/25 History rosuvastatin 40 mg tablet (Crestor) 40 mg PO DAILY ##0 10/27/11 06/24/25 History spironolactone 25 mg tablet 25 mg PO DAILYCC ##0 10/27/11 06/24/25 History sulfasalazine 500 mg tablet 500 mg PO BID ##0 10/27/11 06/24/25 History calcium carbonate-vitamin D3 1 tab PO BID 06/24/25 06/24/25 History metformin 500 mg tablet 500 mg PO BID 06/24/25 06/24/25 History multivitamin 1 tab PO DAILY 06/24/25 06/24/25 History nitroglycerin 0.4 mg sublingual 0.4 mg sublingual PRN 06/24/25 06/24/25 History tablet oxycodone-acetaminophen 5 mg-325 1 tab PO QID 06/24/25 06/24/25 History mg tablet prednisone 20 mg tablet 20 mg PO DAILY 06/24/25 06/24/25 History warfarin 2 mg tablet 4 mg PO DAILY 06/24/25 06/24/25 History Allergies Allergy/AdvReac Type Severity Reaction Status Date / Time AMIODARONE Allergy Severe LUNG Uncoded 12/03/17 12:03 INVOLVEMENT Exam Vital Signs (past 8 hours): - 06/24/25 07:53 Temperature 96.4 F L Pulse Rate 62 Respiratory Rate 14 Blood Pressure 124/67 Oxygen Flow Rate 98 Oxygen Delivery Method Room Air Oxygen Flow Rate 98 Objective Labs 06/23/25 21:15 06/24/25 06:11 Labs: Laboratory Results - last 24 hr 06/23/25 06/23/25 06/24/25 21:15 23:34 06:11 WBC 6.7 RBC 2.99 L Hgb 10.2 L Hct 29.9 L MCV 99.9 MCH 34.1 H MCHC 34.1 RDW 14.9 H Plt Count 252 Neut % (Auto) 79.4 H Lymph % (Auto) 12.9 L [place] % (Auto) 7.1 Eos % (Auto) 0.0 L Baso % (Auto) 0.6 Neut # (Auto) 5400 Lymph # (Auto) 900 L [place] # (Auto) 500 Eos # (Auto) 0 Baso # (Auto) 0 PT 37.7 H INR 3.4 H APTT 67 H Sodium 134 L 135 L Potassium 3.9 3.9 Chloride 105 105 Carbon Dioxide 24 23 BUN 20 20 Creatinine 1.08 1.14 Estimated GFR > 60 > 60 BUN/Creatinine Ratio 18.5 17.5 Glucose 123 H 98 POC Whole Bld Glucose Hemoglobin A1c 4.2 Calcium 9.3 8.9 Magnesium 1.4 L 1.9 Total Bilirubin 0.9 0.7 AST 25 25 ALT 20 19 Alkaline Phosphatase 105 99 Total Creatine Kinase < 20 L Troponin I 0.024 0.022 NT-Pro-B Natriuret Pep 3900 H Total Protein 6.7 6.6 Albumin 3.9 3.8 Globulin 2.8 2.8 Albumin/Globulin Ratio 1.4 1.4 Lipase 58 TSH 2.22 06/24/25 06/24/25 09:56 11:50 WBC RBC Hgb Hct MCV MCH MCHC RDW Plt Count Neut % (Auto) Lymph % (Auto) [place] % (Auto) Eos % (Auto) Baso % (Auto) Neut # (Auto) Lymph # (Auto) [place] # (Auto) Eos # (Auto) Baso # (Auto) PT INR APTT Sodium Potassium Chloride Carbon Dioxide BUN Creatinine Estimated GFR BUN/Creatinine Ratio Glucose POC Whole Bld Glucose 107 H 124 H Hemoglobin A1c Calcium Magnesium Total Bilirubin AST ALT Alkaline Phosphatase Total Creatine Kinase Troponin I NT-Pro-B Natriuret Pep Total Protein Albumin Globulin Albumin/Globulin Ratio Lipase TSH Assessment & Plan Time-Based Coding :: [TOTAL MINUTES] spent with patient and on the chart (including review of chart, obtaining history, exam, reviewing outside data, placing orders, documenting exam and treatment plan, and counseling patient) on [DATE]. Quality VTE Deep Vein Thrombosis/Pulmonary Embolism Present on Admission: No
--- NOTE | 2025-06-24 15:15 | CM.DANOTE ---
Patient is a 79 yo male who was admitted OBS Status on 06/24/25 for Orthostatic Hypotension. Pt has [facility] ADV for insurance and his PCP is not listed. EMR was reviewed. Per , pt with hx of CHF, CABG and admitted for orthostatic hypotension. Pt to work with PT/OT today and pending labs and vitals possible discharge tomorrow. Per OT, pt scored 24/30 for SLUMS and was SBA with FWW and recommending home with assist. Pt likely not homebound to meet HH criteria. Per PT, pt was 1PA and recommending SNF. SW met briefly bedside with pt as he was getting ready to use the bathroom and he confirms he lives in [place] alone in a mobile home and he still drives. Pt does not usually use DME for ambulation but has started noticing he needs more assist with ADLs lately. Pt has family who live nearby and could assist but pt has not wanted to ask for help but to try to maintain his independence. Pt currently declines SNF or HH and preference is home with family assist. Pt hopeful to feel better with bp issues and feels he will do better with mobility. Plan: SW to follow up tomorrow Sat after further PT/OT to confirm safe plan of home with family support and any further identified discharge planning needs. If SNF needed, [facility] would need to be started for SNF. JUAN PABLO Garcia Discharge Planning/Care Management CM Discharge Assessment Start: 06/24/25 05:30 Freq: Status: Active Protocol: Document 06/24/25 15:13 [facility] (Rec: 06/24/25 15:15 BF [id number]) Discharge Planning Assessment Assigned Discharge JUAN PABLO Sesay Portable Canteen Operator Insurance [facility] DPOA/Assigned informally adult kids Designee Name Advance Directives? No Advance Directives No on File History Provided By Patient,Medical Record Has Patient been No admitted in last 30 days? Prior Living Mobile home Arrangements Household Members none Type of Drives own vehicle transporation used prior to admit Independent with ADL Yes 's Is patient alert and Yes oriented? Needs Assistance Home Chores / Shopping With Caregiver for No Another DME Already Rented / FWW / Walker Owned Barriers to Yes Discharge Comment OBS Status, could benefit from SNF but pt wants home Discharge Plan Home Transportation Family Arrangement Referrals Initiated None needed Whiteboard Updated Yes in Patient Room with name and ext. # of Enamel Finisher Review Status In Process Please Provide Date 06/24/25 Initial DC Assessment Was Performed Next Review Type Continued Stay Review
[2025-06-24 16:42] LABS: INR 3.5 (0.9-1.3); Prothrombin Time 38.1 SECONDS (9.4-12.5)
--- NOTE | 2025-06-24 18:21 | PC.NURSE ---
Pt Tele V-paced. HR increases pre ICU staff when pt is up to BR. Have asked pt to be SBA when up to assess CBG 124/107/105, no S/S required. Condition remains essentially unchanged Call light w/in reach, pt calls appropriately for neds. Continue w/plan of care.
[2025-06-25 04:00] VITALS: BP 99/59; PULSE 61; RESP 16; TEMP 36.6; O2SAT 95
[2025-06-25 05:27] LABS: INR 2.8 (0.9-1.3); Prothrombin Time 30.4 SECONDS (9.4-12.5)
[2025-06-25 05:33] LABS: Alanine Aminotransferase 22 IU/L (<50); Albumin 3.9 g/dL (3.5-5.0); Albumin Globulin Ratio 1.4 (1.0-2.8); Alkaline Phosphatase 99 U/L (38-126); Blood Urea Nitrogen 24 mg/dL (9-20); Calcium 8.8 mg/dL (8.4-10.2); Carbon Dioxide 24 mmol/L (22-32); Chloride 104 mmol/L (98-107); Estimated Glomerular Filt Rate > 60 mL/min (>60); Globulin 2.7 g/dL (1.7-4.1); Glucose 92 mg/dL (70-99); HEMOLYSIS < 15 (0-50); Magnesium 1.7 mg/dL (1.6-2.3); Potassium 3.9 mmol/L (3.4-5.1); Sodium 135 mmol/L (137-145); Total Protein 6.6 g/dL (6.3-8.2)
--- NOTE | 2025-06-25 07:43 | P.DS_ITS ---
History of Present Illness
--- NOTE | 2025-06-25 07:43 | PM.DS.1 ---
History of Present Illness History of Present Illness Date Patient Seen: 06/25/25 Chief complaint: headache/dizzy/weakness Narrative: Chief complaint: Dizziness feeling faint secondary to orthostatic hypotension with ischemic cardiomyopathy coronary disease History of present illness: 06/24: (per soft sugar supervisor documentation) 79 years old male with history of congestive heart failure, coronary artery disease, CABG and pacemaker presented to the ER with sudden onset of dizziness when he woke up. He found very difficult standing and walking. Denies any other symptoms. In the ER he was found to be hypotensive and was started to be admitted for observation. Findings in the emergency department: His laboratory shows WBC 6.7, H&H 10.2/29.9, sodium 134, creatinine 1.08, blood sugar 125, troponin 0.0 24, BNP 3900, lipase 58. EKG shows ventricular paced rhythm of 69 bpm. Imaging study including head CT and chest x-ray was unremarkable. And PT INR was 3.4 Echocardiogram: Dilated LV. Severely reduced LV systolic function. LVEF is 25 to 30%. LAD wall segments appear akinetic. Normal RV size. RV systolic function appears mildly reduced. Moderately dilated left atrium. Mild mitral and tricuspid regurgitation. Ascending aorta is mildly dilated at 3.9 cm. Hospital course: 06/24: Patient did not sleep last night but no episodes of chest pain shortness for breath palpitations no syncopal episodes spent most of the time in bed 06/25: Case was discussed with patient's gleason operator Dr. Seals no recommended reducing the Lasix to as needed but continuing the rest of his GD MT cardiomyopathy and coronary artery disease medications as a strategy for avoiding orthostatic hypotension Review of systems: No palpitations chest pain No fevers chills rigors No nausea vomiting diarrhea No paresthesia or paresis Physical exam: Elderly male tired but no acute distress HEENT unremarkable Heart rate and rhythm regular Lungs clear Abdomen benign Extremities no edema For objective laboratory imaging and cardiac findings please see the bottom of the note Assessment and plan: Symptomatic orthostasis in a patient with extensive cardiac history low ejection fraction coronary artery disease status post 6 myocardial infarctions with aortocoronary bypass revascularization and history No signs of acute coronary ischemia Suspect this is hypovolemia related to diuretics that are being used to compensate chronic heart failure Hold diuretics gentle hydration per recommendation of Dr. Goncalves on-call for Dr. 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 Seals Time based billin minutes were involved in the evaluation of this patient including [id number] evaluation review of records personal review of objective laboratory and imaging findings as well as EKG Discharge Providers Provider Date of admission: 06/24/25 04:37 Discharge Date: 06/25/25 Consults: 06/24/25 04:41 Consult to Discharge Planning Routine Comment: Consult to Occupational Therapy Evaluate & Treat Comment: Physician Instructions: Evaluate and treat Consult to Physical Therapy Evaluate & Treat Comment: Physician Instructions: Evaluate and Treat Discharge provider: Andrea Maldonado MD Exam Vital Signs (past 8 hours): - 06/25/25 04:00 Temperature 97.8 F Pulse Rate 61 Respiratory Rate 16 Blood Pressure 99/59 L Pulse Oximetry 95 Oxygen Flow Rate 0 Oxygen Delivery Method Room Air Oxygen Flow Rate 0 Objective Labs 06/23/25 21:15 06/25/25 04:32 Labs: Laboratory Results - last 24 hr 06/24/25 06/24/25 06/24/25 09:56 11:50 16:23 PT 38.1 H INR 3.5 H Sodium Potassium Chloride Carbon Dioxide BUN Creatinine Estimated GFR BUN/Creatinine Ratio Glucose POC Whole Bld Glucose 107 H 124 H Calcium Magnesium Total Bilirubin AST ALT Alkaline Phosphatase Total Protein Albumin Globulin Albumin/Globulin Ratio 06/24/25 06/24/25 06/25/25 16:31 19:43 04:32 PT 30.4 H D INR 2.8 H Sodium 135 L Potassium 3.9 Chloride 104 Carbon Dioxide 24 BUN 24 H Creatinine 1.15 Estimated GFR > 60 BUN/Creatinine Ratio 20.9 Glucose 92 POC Whole Bld Glucose 107 H 112 H Calcium 8.8 Magnesium 1.7 Total Bilirubin 0.6 AST 35 ALT 22 Alkaline Phosphatase 99 Total Protein 6.6 Albumin 3.9 Globulin 2.7 Albumin/Globulin Ratio 1.4 06/25/25 07:35 PT INR Sodium Potassium Chloride Carbon Dioxide BUN Creatinine Estimated GFR BUN/Creatinine Ratio Glucose POC Whole Bld Glucose 91 Calcium Magnesium Total Bilirubin AST ALT Alkaline Phosphatase Total Protein Albumin Globulin Albumin/Globulin Ratio PFSH Social History household members: none Smoking Status: Never smoker Discharge Plan Discharge Plan Patient Disposition: Home Discharge orders & Medications Prescriptions: Continued rosuvastatin [Crestor] 40 MG tablet 40 mg PO DAILY Qty: 0 carvedilol [Coreg] 25 MG tablet 25 mg PO BID Qty: 0 lisinopril 10 MG tablet 10 mg PO DAILY Qty: 0 hydrochlorothiazide 12.5 MG capsule 12.5 mg PO DAILY Qty: 0 lorazepam [Ativan] 1 MG tablet 0.5 - 1 mg PO BID Qty: 0 spironolactone 25 MG tablet 25 mg PO DAILYCC Qty: 0 sulfasalazine 500 MG tablet 500 mg PO BID Qty: 0 multivitamin Tablet 1 tab PO DAILY calcium carbonate-vitamin D3 [Oyster Shell + D3] 1 tab PO BID metformin 500 mg tablet 500 mg PO BID nitroglycerin 0.4 mg tablet, sublingual 0.4 mg sublingual PRN oxycodone-acetaminophen 5-325 mg tablet 1 tab PO QID prednisone 20 mg tablet 20 mg PO DAILY warfarin 2 mg tablet 4 mg PO DAILY Visit Report/Discharge Packet Instructions: Orthostatic Hypotension, How to Perform Robert Maneuver Stand Alone Forms: Patient Portal/API, Stroke Signs & Symptoms Discharge Data Attending Provider: Tommy Lopez Admit Date/Time: 06/24/25 04:37 Quality VTE Deep Vein Thrombosis/Pulmonary Embolism Present on Admission: No
[2025-06-25 07:48] VITALS: BP 95/56; PULSE 59; RESP 18; TEMP 36.3; O2SAT 92
[2025-06-25] MEDS: CALCIUM CARBONATE 500 MG TAB PO (09:34)
[2025-06-25] MEDS: CHOLECALCIFEROL (VITAMIN D3) 400 UNIT TABLET PO (09:34)
[2025-06-25] MEDS: ATORVASTATIN 20 MG TABLET 80 MG PO (09:36)
[2025-06-25 11:31] VITALS: BP 98/54; PULSE 63; RESP 16; TEMP 36.2; O2SAT 96
--- NOTE | 2025-06-25 12:52 | PC.NURSE ---
Addendum entered by Nancy Baez, RN 06/25/25 13:36: Ride is here, pt assisted w/ dressing. Pt escorted via W/C by staff to waiting vehicle D/C in stable status. Original Note: Pt denies any issues at this time. Independent to BR SL D/C intact. Call light w/in reach, pt calls appropriately for needs. Awaiting transportation.
== END 2025-06-25 13:36 | disposition home or self-care (01) ==
LOC: ED 06-24 04:36 → AC 06-24 04:38
PROVIDERS: Admitting Provider Internal Medicine; Emergency Provider Family Medicine; Referring Provider Internal Medicine; Visit Provider Internal Medicine
DX: I95.1 Orthostatic hypotension (principal); I11.0 Hypertensive heart disease with heart failure; I50.43 Acute on chronic combined systolic (congestive) and diastolic (congestive) heart failure; I25.9 Chronic ischemic heart disease, unspecified; I48.0 Paroxysmal atrial fibrillation; E78.5 Hyperlipidemia, unspecified; E11.65 Type 2 diabetes mellitus with hyperglycemia; E83.42 Hypomagnesemia; Z95.1 Presence of aortocoronary bypass graft; Z95.0 Presence of cardiac pacemaker; Z79.84 Long term (current) use of oral hypoglycemic drugs; Z79.01 Long term (current) use of anticoagulants
CPT/HCPCS: 36415; 70450; 71045; 80053; 82550; 82962; 83036; 83690; 83735; 83880; 84443; 84484; 85025; 85610; 85730; 93005; 96361; 96365; 96375; 97163; 97165; 97530; 99284; G0378; C8929; J1938; J3475; J7040; Q9957